=== PATIENT | female | born 1990 | race Caucasian/White ===

== ENCOUNTER 2021-08-28 02:44 | Inpatient (IN) | payer OTHER ==
[2021-08-28] MEDS ORDERED: PITOCIN 30 UNITS/ LR 500 ML 30 UNITS/500 ML PLAST..BAG IV SCH (05:30)
[2021-08-28] MEDS ORDERED: BRETHINE 1 MG/ML SQ PRN (05:30)
[2021-08-28] MEDS: Lactated Ringers 1,000 ML IV SCH ×2 (06:47→12:38)
[2021-08-28 07:07] LABS: Absolute Neutrophil Ct (ANC) 13.13 (1.4-6.9); Basophil (Absolute #) 0.07 (0-0.4); Eosinophil % 1.7 % (0.00-5.0); Hematocrit 31.4 % (35-47); Hemoglobin 9.3 gm/dl (12.0-16.0); Lymphocyte (Absolute #) 2.71 (1.0-4.6); Lymphocytes % 15.1 % (24.0-44.0); Mean Cell Volume 77.3 fl (78-100); Mean Corpuscular Hemoglobin 22.9 pg (26-32); Mean Corpuscular Hgb Concent. 29.6 g/dl (32-36); Mean Platelet Volume 12.3 fl (7.5-11.0); Monocyte (Absolute #) 1.69 (0.0-1.3); Monocytes % 9.4 % (0.0-12.0); Neutrophil % 73.4 % (36.0-66.0); Platelet Count 179 K/mm3 (150-450); Red Blood Count 4.06 M/mm3 (4.1-5.4); Red Cell Distribution Width 17.5 % (11.5-14.0); White Blood Count 17.9 K/mm3 (4.0-10.5)
[2021-08-28] MEDS ORDERED: Ephedrine Sulfate 50 MG/ML IV PRN (07:41)
[2021-08-28] MEDS ORDERED: Lactated Ringers 1,000 ML IV ONE ×2 (07:41→21:21)
[2021-08-28] MEDS ORDERED: Zofran 4 MG/2 ML VIAL IV PRN (07:42)
[2021-08-28] MEDS ORDERED: XYLOCAINE 1% HCL 20 ML MDV IJ PRN (07:42)
[2021-08-28] MEDS ORDERED: FENTANYL 2 MCG-BUPIV 0.125%-NS 250 ML Epidur 250 ML EPIDURAL SCH (07:45)
--- NOTE | 2021-08-28 08:43 | PCM.HP ---
History of Present Illness - Chief Complaint Chief Complaint: Induction of Labor History of Present Illness: is a 31 year old female. 31 yo iup 39 wks with no signifc pmhx currently here for pit induction and states irregular contx at this time. denies vaginal bleeding and states good movement. vss afebrie abd; gravid ext; no clubbing cyanosis or edema a/p iup 39 wks multiparous will admit for pit induction Medications & Allergies Home Medications: Home Medication List Vits W-Ca,Fe,FA(<1Mg) [] 1 each PO DAILY 06/18/21 [History Confirmed 08/28/21] Allergies/Adverse Reactions: Allergies Allergy/AdvReac Type Severity Reaction Status Date / Time No Known Drug Allergies Allergy Unverified 06/18/21 10:08 - Past Medical History Past Medical History: No Neurological History: No Pertinent History Cardiac History: No Pertinent History CARDIAC HISTORY: No Pertinent History Respiratory History: No Pertinent History Endocrine Medical History: No Pertinent History Musculoskelatal History: No Pertinent History GI Medical History: No Pertinent History History: No Pertinent History Pyscho-Social History: No Pertinent History Reproductive Disorders: No Pertinent History - Female History Are you now?: Yes (currently 39 wks ) Expected Date of Delivery: 09/04/21 - Past Surgical History Past Surgical History: No - Social History Smoking Status: Never smoker Exposure to second hand smoke: Yes Alcohol: None Drug Use: none - Physical Exam Vital Signs: Vital Signs - 24 hr Temp Pulse Resp BP BP Pulse Ox 08/28/21 08:15 89 20 103/61 08/28/21 08:00 85 20 114/69 114/69 08/28/21 07:30 102 H 20 120/61 100 08/28/21 07:15 74 20 103/58 08/28/21 07:00 98.3 F 111 H 20 129/71 08/28/21 06:09 98.3 F 111 H 20 116/75 General Appearance: no apparent distress Neurologic Exam: alert, oriented x 3 Respiratory Exam: normal breath sounds Cardiovascular Exam: regular rate/rhythm Gastrointestinal/Abdomen Exam: soft Pelvic Exam: other (3-4/60/-2/vtx/intact) Rectal Exam: deferred Back Exam: normal inspection Extremity Exam: normal inspection Skin Exam: normal color Results - Labs Lab/Micro Results: Lab Results-Last 24 Hours 08/28/21 Range/Units 06:55 WBC 17.9 H (4.0-10.5) K/mm3 RBC 4.06 L (4.1-5.4) M/mm3 Hgb 9.3 L (12.0-16.0) gm/dl Hct 31.4 L (35-47) % MCV 77.3 L (78-100) fl MCH 22.9 L (26-32) pg MCHC 29.6 L (32-36) g/dl RDW 17.5 H (11.5-14.0) % Plt Count 179 (150-450) K/mm3 MPV 12.3 H (7.5-11.0) fl Gran % 73.4 H (36.0-66.0) % Eos # (Auto) 0.30 (0-0.5) Absolute Lymphs (auto) 2.71 (1.0-4.6) Absolute Monos (auto) 1.69 H (0.0-1.3) Lymphocytes % 15.1 L (24.0-44.0) % Monocytes % 9.4 (0.0-12.0) % Eosinophils % 1.7 (0.00-5.0) % Basophils % 0.4 (0.0-0.4) % Absolute Granulocytes 13.13 H (1.4-6.9) Basophils # 0.07 (0-0.4) Assessment/Plan (1) Abdominal pain affecting Current Visit: Yes Status: Acute Code(s): O26.899 - H RELATED CONDITIONS, UNSPECIFIED TRIMESTER; R10.9 - UNSPECIFIED ABDOMINAL PAIN
--- NOTE | 2021-08-28 08:44 | PCM.BN ---
Brief Admission Note - Admission Note Brief Admisson Note: Patient admitted @ 08/28/21 05:45 to OB. Medication List reviewed and reconciled. 31 yo iup 39 wks with no signific pmhx currently here for induction and denies comlaints. hx of x 4. exam; /-2/vtx/intact a/p iup 39 wks for pit induction will admit for pit induction
[2021-08-28 09:23] LABS: Slide Review 1 YES
[2021-08-28 09:24] LABS: Amphetamine,Urine NEGATIVE (NEGATIVE); Barbiturate,Urine NEGATIVE (NEGATIVE); Benzodiazepine,Urine NEGATIVE (NEGATIVE); Cocaine,Urine NEGATIVE (NEGATIVE); Methadone,Urine NEGATIVE (NEGATIVE); Opiate,Urine NEGATIVE (NEGATIVE); PCP,Urine NEGATIVE (NEGATIVE); THC,Urine NEGATIVE (NEGATIVE)
[2021-08-28] MEDS ORDERED: STADOL 2 MG ONE (11:36)
[2021-08-28] MEDS ORDERED: STADOL 2 MG IV ONE (11:40)
[2021-08-28] MEDS ORDERED: Ambien 10 MG PO PRN (18:56)
[2021-08-28] MEDS ORDERED: Mylicon 80MG PO PRN (18:56)
[2021-08-28] MEDS ORDERED: TUCKS TP PRN (18:56)
[2021-08-28] MEDS ORDERED: Adacel Vial IM ONE (18:56)
[2021-08-28] MEDS ORDERED: LANSINOH 40 GM TOP PRN (18:56)
[2021-08-28] MEDS ORDERED: Dulcolax 10 MG SUPP PR PRN (18:56)
[2021-08-28] MEDS ORDERED: Dermoplast Spray TP PRN (18:56)
[2021-08-28] MEDS: TYLENOL EXTRA STRENGTH 500 MG PO PRN (19:00)
[2021-08-28] MEDS: Colace 100 MG PO SCH (21:01)
[2021-08-29] MEDS: MOTRIN 400 MG PO PRN ×2 (00:10→21:24)
[2021-08-29 05:12] LABS: Absolute Neutrophil Ct (ANC) 13.28 (1.4-6.9); Basophil (Absolute #) 0.04 (0-0.4); Eosinophil % 1.2 % (0.00-5.0); Eosinophil (Absolute #) 0.22 (0-0.5); Hematocrit 26.4 % (35-47); Hemoglobin 7.6 gm/dl (12.0-16.0); Lymphocytes % 16.7 % (24.0-44.0); Mean Cell Volume 78.8 fl (78-100); Mean Corpuscular Hemoglobin 22.7 pg (26-32); Mean Corpuscular Hgb Concent. 28.8 g/dl (32-36); Mean Platelet Volume 12.4 fl (7.5-11.0); Monocyte (Absolute #) 1.95 (0.0-1.3); Monocytes % 10.5 % (0.0-12.0); Neutrophil % 71.4 % (36.0-66.0); Platelet Count 151 K/mm3 (150-450); Red Blood Count 3.35 M/mm3 (4.1-5.4); Red Cell Distribution Width 17.3 % (11.5-14.0); White Blood Count 18.6 K/mm3 (4.0-10.5)
[2021-08-29 08:16] LABS: Slide Review 1 YES
[2021-08-29 08:37] LABS: HBsAg Screen Negative (Negative)
[2021-08-29] MEDS ORDERED: M-M-R II Vaccine With Diluent SQ ONE (10:00)
[2021-08-29] MEDS ORDERED: Adacel Vial IM ONE (10:00)
[2021-08-29] MEDS: FERREX 150 PO SCH (10:20)
[2021-08-29] MEDS: Colace 100 MG PO SCH ×2 (10:20→21:05)
[2021-08-29] MEDS ORDERED: Rhogam Plus 300 MCG IM ONE (12:00)
--- NOTE | 2021-08-29 12:10 | PCM.NOTE ---
Date and Time: 08/29/21 1208 Subjective Assessment: ppd 1 sp pt resting in bed and doing well vss afebrile abd; soft uterus; firm lochia; mild hgb; 7.6 ap sp ppd 1 dc home tomorrow fu office in 3 wks OBJECTIVE DATA Vital Signs: Vital Signs - 24 hr Temp Pulse Resp BP BP Pulse Ox 08/29/21 08:00 98.1 F 75 18 98/55 08/29/21 03:59 98.0 F 90 20 111/63 08/29/21 00:00 98.9 F 94 H 20 118/53 08/28/21 20:00 98 F 128 H 20 115/68 08/28/21 16:15 91 H 20 126/71 08/28/21 16:00 97.8 F 94 H 20 117/58 08/28/21 15:45 108 H 20 103/59 08/28/21 15:30 87 22 122/76 08/28/21 15:15 98 F 107 H 26 H 110/70 08/28/21 15:00 98 F 101 H 26 H 108/62 08/28/21 14:45 98 F 90 26 H 109/57 08/28/21 14:30 98 F 87 22 107/65 95 08/28/21 14:15 98 F 87 22 109/69 95 08/28/21 14:00 98 F 64 22 103/59 95 08/28/21 13:45 98 F 66 22 106/61 98 08/28/21 13:30 98 F 71 22 108/60 98 08/28/21 13:15 98 F 81 22 125/56 96 08/28/21 13:00 98 F 96 H 22 104/63 98 08/28/21 12:45 98 F 80 22 109/64 08/28/21 12:30 98 F 96 H 22 109/70 08/28/21 12:15 98 F 66 22 106/61 Pain Assessment - Last Documented Pain Intensity [Anterior] 9 Pain Intensity 2 Pain Scale Used FLACC Intake and Output: Intake & Output 08/27/21 08/28/21 08/29/21 08/30/21 11:59 11:59 11:59 11:59 Output Total 50 Balance -50 Weight 70.307 kg Lab Results: Lab Results-Last 24 Hours 12/08/28/21 08/29/21 Range/Units 06:45 17:53 04:54 WBC 18.6 H (4.0-10.5) K/mm3 RBC 3.35 L (4.1-5.4) M/mm3 Hgb 7.6 L (12.0-16.0) gm/dl Hct 26.4 L (35-47) % MCV 78.8 (78-100) fl MCH 22.7 L (26-32) pg MCHC 28.8 L (32-36) g/dl RDW 17.3 H (11.5-14.0) % Plt Count 151 (150-450) K/mm3 MPV 12.4 H (7.5-11.0) fl Gran % 71.4 H (36.0-66.0) % Eos # (Auto) 0.22 (0-0.5) Absolute Lymphs (auto) 3.10 (1.0-4.6) Absolute Monos (auto) 1.95 H (0.0-1.3) Lymphocytes % 16.7 L (24.0-44.0) % Monocytes % 10.5 (0.0-12.0) % Eosinophils % 1.2 (0.00-5.0) % Basophils % 0.2 (0.0-0.4) % Absolute Granulocytes 13.28 H (1.4-6.9) Basophils # 0.04 (0-0.4) Hep Bs Antigen Negative (Negative) Slides for Path Review YES Screen SEE SEPARATE REPORT Assessment/Plan (1) Abdominal pain affecting Current Visit: Yes Status: Acute Code(s): O26.899 - OTH RELATED CONDITIONS, UNSPECIFIED TRIMESTER; R10.9 - UNSPECIFIED ABDOMINAL PAIN (2) Vaginal delivery Current Visit: Yes Status: Acute Code(s): O80 - ENCOUNTER FOR FULL-TERM UNCOMPLICATED DELIVERY
--- NOTE | 2021-08-29 12:14 | PCM.DS ---
Discharge Summary Date of Admission: 08/28/21 05:45 Admitting Physician: FRANK EPSTEIN DO Consults: Consults on Case 08/28/21 07:42 Notify Anesthesia Provider ROUTINE 08/28/21 18:58 Notify Physician ROUTINE 08/29/21 08:19 Navigation ONCE Primary Care Provider: FRANK EPSTEIN DO Allergies Allergies No Known Drug Allergies Allergy (Unverified 06/18/21 10:08) Hospital Summary - Hospital Course Hospital Course: pt was admitted on aug 28 for pitocin induction and delivered live baby boy without complication on aug 28. during period noted having decreased hgb level to 7.6 and rx to be given for iron supplementation. doing well at this time and stable for discharge on aug 30 2021. all questions answered to her satisfaction and was advised to fu in 3 wks. - Vitals & Intake/Output Vital Signs: Vital Signs Temperature 98.1 F 08/29/21 08:00 Pulse Rate 75 08/29/21 08:00 Respiratory Rate 18 08/29/21 08:00 Blood Pressure 98/55 08/29/21 08:00 O2 Sat by Pulse Oximetry 95 08/28/21 14:30 Intake & Output: Intake & Output 08/27/21 08/28/21 08/29/21 08/30/21 11:59 11:59 11:59 11:59 Output Total 50 Balance -50 Weight 70.307 kg - Lab Result Diagrams: 08/29/21 04:54 Lab Results-Last 24 Hrs: Lab Results-Last 24 Hours 08/28/21 08/28/21 08/29/21 Range/Units 06:45 17:53 04:54 WBC 18.6 H (4.0-10.5) K/mm3 RBC 3.35 L (4.1-5.4) M/mm3 Hgb 7.6 L (12.0-16.0) gm/dl Hct 26.4 L (35-47) % MCV 78.8 (78-100) fl MCH 22.7 L (26-32) pg MCHC 28.8 L (32-36) g/dl RDW 17.3 H (11.5-14.0) % Plt Count 151 (150-450) K/mm3 MPV 12.4 H (7.5-11.0) fl Gran % 71.4 H (36.0-66.0) % Eos # (Auto) 0.22 (0-0.5) Absolute Lymphs (auto) 3.10 (1.0-4.6) Absolute Monos (auto) 1.95 H (0.0-1.3) Lymphocytes % 16.7 L (24.0-44.0) % Monocytes % 10.5 (0.0-12.0) % Eosinophils % 1.2 (0.00-5.0) % Basophils % 0.2 (0.0-0.4) % Absolute Granulocytes 13.28 H (1.4-6.9) Basophils # 0.04 (0-0.4) Hep Bs Antigen Negative (Negative) Slides for Path Review YES Screen SEE SEPARATE REPORT Final Diagnosis/Problem List - Final Discharge Diagnosis/Problem (1) Abdominal pain affecting Current Visit: Yes Status: Acute Code(s): O26.899 - OTH RELATED C ONDITIONS, UNSPECIFIED TRIMESTER; R10.9 - UNSPECIFIED ABDOMINAL PAIN (2) Vaginal delivery Current Visit: Yes Status: Acute Code(s): O80 - ENCOUNTER FOR FULL-TERM UNCOMPLICATED DELIVERY - Discharge Disposition: Home, Self-Care Condition: Stable Prescriptions: New Ferric Citrate [Auryxia] 210 mg PO BID 30 Days #60 tablet No Action Vits W-Ca,Fe,FA(<1Mg) [] 1 each PO DAILY Follow up with: FRANK EPSTEIN DO [Primary Care Provider] - 3 weeks (should fu in 3 wks)
[2021-08-29] MEDS: TYLENOL EXTRA STRENGTH 500 MG PO PRN (16:22)
[2021-08-30 03:00] VITALS: O2SAT 97
[2021-08-30] MEDS: Colace 100 MG PO SCH (09:17)
[2021-08-30] MEDS: FERREX 150 PO SCH (09:17)
[2021-08-30] MEDS: TYLENOL EXTRA STRENGTH 500 MG PO PRN (12:17)
[2021-08-30 12:48] VITALS: BP 112/62; PULSE 118
== END 2021-08-30 13:30 | disposition home or self-care (01) | DRG 807 ==
LOC: OB 05:45
PROVIDERS: ADMIT Obstetrics & Gynecology; ATTEND Obstetrics & Gynecology
PROC: 10E0XZZ Delivery of Products of Conception, External Approach (ICD-10-PCS; principal; 2021-08-28)
PROC: 0KQM0ZZ Repair Perineum Muscle, Open Approach (ICD-10-PCS; 2021-08-28)
PROC: 3E033VJ Introduction of Other Hormone into Peripheral Vein, Percutaneous Approach (ICD-10-PCS; 2021-08-28)
DX: O70.1 Second degree perineal laceration during delivery (principal); Z37.0 Single live birth; R10.9 Unspecified abdominal pain; O90.81 Anemia of the puerperium; Z3A.39 39 weeks gestation of pregnancy
CPT/HCPCS: 0241U; 36415; 59409; 59426; 80307; 81002; 85025; 85461; 86850; 86900; 86901; 87340; 90471; 90715; 96372; G0378; J0595; J2590; J2790; A9270-GY

== ENCOUNTER 2021-10-21 08:09 | Day surgery (SDC) | payer OTHER ==
[~2021-10-21 08:09] MED LIST: CEFAZOLIN 2 GM-D5W BAG** 2 GM/50 ML ML IV SCH; Lactated Ringers 1,000 ML IV ONE; Lactated Ringers 1,000 ML IV SCH; Sensorcaine 0.25% 10 ML ONE
[2021-10-21] MEDS ORDERED: CEFAZOLIN 2 GM-D5W BAG** 2 GM/50 ML ML IV ONE (08:22)
[2021-10-21] MEDS ORDERED: Lactated Ringers 1,000 ML IV ONE ×2 (08:23→10:15)
[2021-10-21] MEDS ORDERED: TORAdol 30 mg Injection ONE (08:34)
[2021-10-21] MEDS ORDERED: Versed 2 MG/2 ML Injection ONE (08:34)
[2021-10-21] MEDS ORDERED: Zemuron 100 MG/10 ML ONE (08:34)
[2021-10-21] MEDS ORDERED: Xylocaine-Mpf 2% 5 Ml Vial ONE (08:34)
[2021-10-21] MEDS ORDERED: BRIDION 200MG/2ML IV ONE (08:34)
[2021-10-21] MEDS ORDERED: DIPRIVAN 200 MG/20 ML IV ONE (08:34)
[2021-10-21] MEDS ORDERED: SUBLIMAZE 100 MCG/2 ML ONE ×2 (08:34→10:02)
[2021-10-21] MEDS ORDERED: Zofran 4 MG/2 ML VIAL ONE (08:34)
[2021-10-21] MEDS ORDERED: Decadron 4 MG INJ ONE (08:34)
[2021-10-21] MEDS ORDERED: Compazine 10 MG/2 ML ONE (10:00)
[2021-10-21] MEDS ORDERED: Hydromorphone 1 mg/ml Injection ONE (10:24)
[2021-10-21 11:34] VITALS: O2SAT 98
[2021-10-21 11:44] VITALS: BP 118/72; PULSE 82
[2021-10-21 15:26] LABS: Appearance CLEAR (CLEAR); Bilirubin NEGATIVE (NEGATIVE); Blood NEGATIVE Ery/ul (0-5); Glucose NEGATIVE (NEGATIVE); Ketones NEGATIVE (NEGATIVE); Leukocyte Esterase NEGATIVE (NEGATIVE); Mucus SLIGHT /HPF (NEGATIVE); Nitrite NEGATIVE (NEGATIVE); Protein,Urine Dip NEGATIVE (Negative); Specific Gravity 1.016 (1.005-1.025); Urobilinogen NEGATIVE mg/dL (0-1)
--- NOTE | 2021-10-22 08:04 | OP ---
SURGERY DATE/TIME: 10/21/2021 0903 PREOPERATIVE DIAGNOSIS: Multiparity desiring tubal sterilization. POSTOPERATIVE DIAGNOSIS: Multiparity desiring tubal sterilization. PROCEDURE: Laparoscopic tubal sterilization via Falope ring application. SURGEON: Davis Baer D.O. OPTICAL MECHANIC: Gloria Calderon surgical scrub technologist. ANESTHESIA: General. ESTIMATED BLOOD LOSS: Minimal. COMPLICATIONS: None. INDICATIONS: The risks, benefits, indications and alternatives of the procedure were reviewed with the patient prior to the procedure. The patient understood the risk of infection, bleeding, bowel injury, bladder injury, ureteral injury, uterine perforation, possible future and ectopic that may be associated with this procedure however desires to have this procedure as a possible means to alleviate her current medical condition. All other forms of control have been discussed with the patient and the patient desires to have this procedure as a form of control method. DESCRIPTION OF PROCEDURE AND FINDINGS: From this point, the patient is taken to the operating room, given general sedation, placed in dorsal lithotomy position, prepped and draped in the usual sterile fashion. A weighted speculum is then placed in the patient's vagina and the anterior lip of the cervix is grasped with a single tooth tenaculum. Uterine manipulator was then inserted through the endocervical canal as a means to manipulate the uterus. From this point, attention was then turned to the patient's abdomen where a 5 mm skin incision was made in the umbilical fold. A 5 mm trocar and sleeve were advanced under direct visualization where pneumoperitoneum was obtained with 4 liters of CO2 gas. A survey of the patient's pelvis and abdomen revealed completely entirely normal anatomy. From this point, an additional incision was made 2 cm above the symphysis pubis where an 8 mm incision was made and trocar and sleeve were advanced under direct visualization. The Falope ring applicator was then taken through the trocar site where the uterus is lifted and the left fallopian tube was identified on the isthmic region. The Falope ring was applied where a knuckle of tube was grasped and was applied without complication with displaced in excellent position. The same procedure was performed on the right side where the Falope ring applicator was reloaded and the Falope ring was applied to the right isthmic region where a knuckle of tube was grasped and was displaced on its side without complication. From this point, there was no bleeding that was noted. From this point, all instruments were removed from the patient's abdominal region and the incisions were closed with 4-0 Monocryl suture. The patient was then taken out of the dorsal lithotomy position, was taken out of anesthesia and was then taken to the recovery room in stable condition. All instruments and laps were accounted for x2.
== END 2021-10-21 11:35 | disposition home or self-care (01) ==
LOC: SDC 08:09
PROVIDERS: ATTEND Obstetrics & Gynecology
DX: Z30.2 Encounter for sterilization (principal)
CPT/HCPCS: 81001; 84703; 87086; J0690; J1100; J1170; J1885; J2250; J2405; J2704; J3010